=== PATIENT | male | born 1960 | race Hispanic/Latino ===

== ENCOUNTER 2017-11-10 11:07 | Inpatient (IN) | payer OTHER, SELFPAY ==
[~2017-11-10] VITALS: Ht 165.1 cm; Wt 60.8 kg
[2017-11-10] MEDS ORDERED: ONDANSETRON HCL 4 MG/2 ML VIAL ONE ×2 (12:06→12:09)
[2017-11-10] MEDS ORDERED: ACETAMINOPHEN 325 MG TAB ONE (12:06)
[2017-11-10] MEDS ORDERED: MORPHINE SULFATE 4 MG/1ML SYG ONE (12:07)
[2017-11-10 12:30] LABS: BASOPHILS % (AUTO) 0.1 % (0.0-5.0); EOSINOPHILS % (AUTO) 0.5 % (0.0-8.0); LYMPHOCYTES % (AUTO) 9.1 % (21.0-51.0); MEAN CORPUSCULAR HEMOGLOBIN 28.8 pg (27.0-33.0); MEAN CORPUSCULAR HGB CONC 34.7 g/dL (32.0-36.0); MEAN CORPUSCULAR VOLUME 82.9 fL (79-99); MONOCYTES % (AUTO) 4.7 % (3.0-13.0); NEUTROPHILS % (AUTO) 85.6 % (40.0-77.0); PLATELET COUNT (AUTO) 190 K/uL (130-400); RED BLOOD CELL COUNT(AUTO) 4.95 MIL/uL (4.50-6.20); RED CELL DISTRIBUTION WIDTH 13.9 % (11.0-15.5); WHITE BLOOD COUNT (AUTO) 19.1 K/uL (4.8-10.8)
[2017-11-10 12:32] LABS: APPEARANCE,URINE Clear (CLEAR); BILIRUBIN,URINE Negative (NEGATIVE); COLOR,URINE Yellow (YELLOW); GLUCOSE, URINE (UA) Negative (NEGATIVE); KETONES,URINE Negative (NEGATIVE); LEUKOCYTE ESTERASE ,URINE Negative (NEGATIVE); NITRATE,URINE Negative (NEGATIVE); OCCULT BLOOD,URINE Negative (NEGATIVE); PROTEIN,URINE 300 (NEGATIVE)
[2017-11-10 12:37] LABS: POTASSIUM 3.4 mmol/L (3.5-5.1)
[2017-11-10 12:42] LABS: ALBUMIN 3.9 g/dL (3.5-5.0); BILIRUBIN,TOTAL 0.4 mg/dL (0.2-1.0); TOTAL PROTEIN, SERUM 7.5 g/dL (6.0-8.3)
[2017-11-10 12:53] LABS: BACTERIA,URINE Rare /HPF (None Seen); HYALINE CASTS, URINE 0-1 /LPF (0-1 /LPF); MUCUS,URINE Few LPF (None Seen); RBC,URINE None Seen /HPF (0-1); SQUAMOUS EPITHELIAL CELL,UR Rare /HPF (0-2); WBC,URINE None Seen /HPF (0-1)
[2017-11-10] MEDS ORDERED: CEFTRIAXONE SODIUM 1 GM ONE (13:31)
[2017-11-10] MEDS ORDERED: LACTATED RINGERS 1000ML 1,000 ML IV ONE (13:31)
[2017-11-10 16:00] VITALS: BP 123/72
[2017-11-10] MEDS ORDERED: METRONIDAZOLE 500MG/100ML BAG 100 ML ONE (16:38)
[2017-11-10] MEDS ORDERED: ACETAMINOPHEN 650 MG SUPPOSITORY RC PRN (17:30)
[2017-11-10] MEDS ORDERED: PROMETHAZINE HCL 25 MG/ML 1ML AMPULE IM PRN (18:00)
[2017-11-10] MEDS: LACTATED RINGERS 1000ML 1,000 ML IV SCH (18:17)
[2017-11-10 20:35] VITALS: BP 106/62
[2017-11-10] MEDS: METRONIDAZOLE 500MG/100ML BAG 100 ML IVPB SCH (21:31)
[2017-11-10] MEDS: CEFTAZIDIME PENTAHYDRATE 1 GM/VIAL IVP SCH (21:31)
[2017-11-10] MEDS: MEPERIDINE-PF 25 MG/ML SYG IV PRN (22:01)
[2017-11-10 23:36] VITALS: BP 101/56
[2017-11-11] MEDS: LACTATED RINGERS 1000ML 1,000 ML IV SCH ×3 (03:58→17:42)
[2017-11-11] MEDS: CEFTAZIDIME PENTAHYDRATE 1 GM/VIAL IVP SCH ×3 (04:01→19:39)
[2017-11-11] MEDS: METRONIDAZOLE 500MG/100ML BAG 100 ML IVPB SCH ×4 (04:01→21:59)
[2017-11-11] MEDS: MEPERIDINE-PF 25 MG/ML SYG IV PRN ×3 (04:07→19:38)
[2017-11-11 04:15] VITALS: BP 99/54
[2017-11-11 06:17] LABS: BASOPHILS % (AUTO) 0.2 % (0.0-5.0); HEMATOCRIT 37.2 % (42-54); LYMPHOCYTES % (AUTO) 6.5 % (21.0-51.0); MEAN CORPUSCULAR HEMOGLOBIN 28.7 pg (27.0-33.0); MEAN CORPUSCULAR HGB CONC 34.5 g/dL (32.0-36.0); MEAN CORPUSCULAR VOLUME 83.2 fL (79-99); MONOCYTES % (AUTO) 6.6 % (3.0-13.0); NEUTROPHILS % (AUTO) 86.7 % (40.0-77.0); PLATELET COUNT (AUTO) 170 K/uL (130-400); RED BLOOD CELL COUNT(AUTO) 4.48 MIL/uL (4.50-6.20); RED CELL DISTRIBUTION WIDTH 13.7 % (11.0-15.5); WHITE BLOOD COUNT (AUTO) 19.1 K/uL (4.8-10.8)
[2017-11-11 06:39] LABS: CREATININE 0.9 mg/dL (0.5-1.5); POTASSIUM 3.6 mmol/L (3.5-5.1)
[2017-11-11 08:00] VITALS: BP 113/79
[2017-11-11 11:00] VITALS: BP 119/82
[2017-11-11 15:46] VITALS: BP 111/67
[2017-11-11 20:27] VITALS: BP 112/64
[2017-11-11] MEDS ORDERED: LORAZEPAM 0.5 MG TABLET PO ONE (20:30)
[2017-11-12 00:29] VITALS: BP 111/59
[2017-11-12] MEDS: LACTATED RINGERS 1000ML 1,000 ML IV SCH ×4 (02:55→20:01)
[2017-11-12 03:53] VITALS: BP 114/63
[2017-11-12] MEDS: METRONIDAZOLE 500MG/100ML BAG 100 ML IVPB SCH ×4 (04:23→20:00)
[2017-11-12] MEDS: CEFTAZIDIME PENTAHYDRATE 1 GM/VIAL IVP SCH ×3 (04:23→20:00)
[2017-11-12] MEDS: MEPERIDINE-PF 25 MG/ML SYG IV PRN ×3 (04:35→20:07)
[2017-11-12 06:00] LABS: HEMATOCRIT 34.5 % (42-54); MEAN CORPUSCULAR HEMOGLOBIN 29.2 pg (27.0-33.0); MEAN CORPUSCULAR VOLUME 83.5 fL (79-99); PLATELET COUNT (AUTO) 141 K/uL (130-400); RED BLOOD CELL COUNT(AUTO) 4.13 MIL/uL (4.50-6.20); RED CELL DISTRIBUTION WIDTH 13.9 % (11.0-15.5); WHITE BLOOD COUNT (AUTO) 17.3 K/uL (4.8-10.8)
[2017-11-12 06:09] LABS: CREATININE 0.8 mg/dL (0.5-1.5); POTASSIUM 3.5 mmol/L (3.5-5.1)
[2017-11-12 07:00] VITALS: BP 110/61
[2017-11-12 11:11] VITALS: BP 115/66
[2017-11-12 15:36] VITALS: BP 115/64
[2017-11-12 19:52] VITALS: BP 126/72
[2017-11-13] VITALS (7 sets, daily range): BP systolic 108–131; BP diastolic 60–76
[2017-11-13] MEDS: METRONIDAZOLE 500MG/100ML BAG 100 ML IVPB SCH ×4 (04:24→21:53)
[2017-11-13] MEDS: CEFTAZIDIME PENTAHYDRATE 1 GM/VIAL IVP SCH ×3 (04:24→20:20)
[2017-11-13 05:22] LABS: HEMATOCRIT 36.3 % (42-54); MEAN CORPUSCULAR HEMOGLOBIN 28.7 pg (27.0-33.0); MEAN CORPUSCULAR HGB CONC 34.3 g/dL (32.0-36.0); MEAN CORPUSCULAR VOLUME 83.7 fL (79-99); PLATELET COUNT (AUTO) 152 K/uL (130-400); RED BLOOD CELL COUNT(AUTO) 4.33 MIL/uL (4.50-6.20); RED CELL DISTRIBUTION WIDTH 13.7 % (11.0-15.5); WHITE BLOOD COUNT (AUTO) 16.1 K/uL (4.8-10.8)
[2017-11-13 05:32] LABS: CREATININE 0.8 mg/dL (0.5-1.5); POTASSIUM 3.2 mmol/L (3.5-5.1)
[2017-11-13] MEDS ORDERED: DIATR MEGLU/DIATRIZOATE SODIUM 30 ML BOTTLE ONE (07:54)
[2017-11-13] MEDS: LACTATED RINGERS 1000ML 1,000 ML IV SCH ×3 (10:35→23:24)
[2017-11-13] MEDS ORDERED: IOPAMIDOL-370 75 ML VIAL IV ONE (11:46)
[2017-11-13] MEDS: MEPERIDINE-PF 25 MG/ML SYG IV PRN (23:24)
[2017-11-14 03:44] VITALS: BP 110/65
[2017-11-14] MEDS: METRONIDAZOLE 500MG/100ML BAG 100 ML IVPB SCH ×4 (04:02→22:00)
[2017-11-14] MEDS: CEFTAZIDIME PENTAHYDRATE 1 GM/VIAL IVP SCH ×3 (04:02→19:56)
[2017-11-14 07:00] VITALS: BP 108/61
[2017-11-14] MEDS: LACTATED RINGERS 1000ML 1,000 ML IV SCH ×2 (10:00→15:56)
[2017-11-14 12:00] VITALS: BP 124/71
[2017-11-14 15:41] LABS: HEMATOCRIT 35.5 % (42-54); MEAN CORPUSCULAR HEMOGLOBIN 28.6 pg (27.0-33.0); MEAN CORPUSCULAR HGB CONC 34.3 g/dL (32.0-36.0); MEAN CORPUSCULAR VOLUME 83.4 fL (79-99); PLATELET COUNT (AUTO) 202 K/uL (130-400); RED BLOOD CELL COUNT(AUTO) 4.26 MIL/uL (4.50-6.20); RED CELL DISTRIBUTION WIDTH 13.4 % (11.0-15.5); WHITE BLOOD COUNT (AUTO) 10.3 K/uL (4.8-10.8)
[2017-11-14] MEDS: MEPERIDINE-PF 25 MG/ML SYG IV PRN ×2 (15:43→23:56)
[2017-11-14 16:17] VITALS: BP 127/74
[2017-11-14 20:00] VITALS: BP 127/76
[2017-11-14 23:19] VITALS: BP 120/65
[2017-11-15] MEDS: LACTATED RINGERS 1000ML 1,000 ML IV SCH ×3 (01:56→18:59)
[2017-11-15 04:07] VITALS: BP 120/66
[2017-11-15] MEDS: METRONIDAZOLE 500MG/100ML BAG 100 ML IVPB SCH ×4 (04:07→22:38)
[2017-11-15] MEDS: CEFTAZIDIME PENTAHYDRATE 1 GM/VIAL IVP SCH ×3 (04:07→21:52)
[2017-11-15 06:22] LABS: HEMATOCRIT 34.8 % (42-54); MEAN CORPUSCULAR HEMOGLOBIN 29.3 pg (27.0-33.0); MEAN CORPUSCULAR HGB CONC 35.2 g/dL (32.0-36.0); MEAN CORPUSCULAR VOLUME 83.3 fL (79-99); NUCLEATED RED BLOOD CELLS 0.1 % (0.0-0.19); PLATELET COUNT (AUTO) 250 K/uL (130-400); RED BLOOD CELL COUNT(AUTO) 4.18 MIL/uL (4.50-6.20); RED CELL DISTRIBUTION WIDTH 13.8 % (11.0-15.5); WHITE BLOOD COUNT (AUTO) 9.5 K/uL (4.8-10.8)
[2017-11-15 08:00] VITALS: BP 118/66
[2017-11-15 11:58] VITALS: BP 126/70
[2017-11-15 16:38] VITALS: BP 116/66
[2017-11-15 20:18] VITALS: BP 119/65
[2017-11-16 00:26] VITALS: BP 122/62
[2017-11-16] MEDS: MEPERIDINE-PF 25 MG/ML SYG IV PRN (00:48)
[2017-11-16] MEDS: CEFTAZIDIME PENTAHYDRATE 1 GM/VIAL IVP SCH ×3 (04:15→20:54)
[2017-11-16] MEDS: LACTATED RINGERS 1000ML 1,000 ML IV SCH ×4 (04:17→20:53)
[2017-11-16 04:55] VITALS: BP 124/66
[2017-11-16] MEDS: METRONIDAZOLE 500MG/100ML BAG 100 ML IVPB SCH ×4 (05:04→21:58)
[2017-11-16 08:29] VITALS: BP 124/72
[2017-11-16 12:00] VITALS: BP 115/73
[2017-11-16 16:00] VITALS: BP 124/69
[2017-11-16 19:00] VITALS: BP 128/67
[2017-11-17] VITALS: BP 118/72
[2017-11-17 04:00] VITALS: BP 119/65
[2017-11-17] MEDS: CEFTAZIDIME PENTAHYDRATE 1 GM/VIAL IVP SCH ×3 (04:08→20:09)
[2017-11-17] MEDS: METRONIDAZOLE 500MG/100ML BAG 100 ML IVPB SCH ×4 (04:09→21:54)
[2017-11-17 08:00] VITALS: BP 121/62
[2017-11-17 08:59] LABS: HEMATOCRIT 36.6 % (42-54); MEAN CORPUSCULAR HEMOGLOBIN 29.2 pg (27.0-33.0); MEAN CORPUSCULAR HGB CONC 35.2 g/dL (32.0-36.0); PLATELET COUNT (AUTO) 289 K/uL (130-400); RED BLOOD CELL COUNT(AUTO) 4.41 MIL/uL (4.50-6.20); RED CELL DISTRIBUTION WIDTH 13.4 % (11.0-15.5); WHITE BLOOD COUNT (AUTO) 9.4 K/uL (4.8-10.8)
[2017-11-17] MEDS: LACTATED RINGERS 1000ML 1,000 ML IV SCH ×2 (10:00→18:00)
[2017-11-17 12:00] VITALS: BP 122/66
[2017-11-17 16:00] VITALS: BP 131/63
[2017-11-17] MEDS: MEPERIDINE-PF 25 MG/ML SYG IV PRN (17:15)
[2017-11-17 19:00] VITALS: BP 123/64
[2017-11-17] MEDS ORDERED: MEPERIDINE-PF 25 MG/ML SYG ONE (23:36)
[2017-11-18] VITALS: BP 132/68
[2017-11-18] MEDS: LACTATED RINGERS 1000ML 1,000 ML IV SCH ×3 (00:49→20:23)
[2017-11-18 04:00] VITALS: BP 134/66
[2017-11-18] MEDS: METRONIDAZOLE 500MG/100ML BAG 100 ML IVPB SCH ×4 (04:17→21:57)
[2017-11-18] MEDS: CEFTAZIDIME PENTAHYDRATE 1 GM/VIAL IVP SCH ×3 (04:17→20:23)
[2017-11-18 06:43] LABS: HEMATOCRIT 37.3 % (42-54); MEAN CORPUSCULAR HEMOGLOBIN 28.2 pg (27.0-33.0); MEAN CORPUSCULAR HGB CONC 34.3 g/dL (32.0-36.0); MEAN CORPUSCULAR VOLUME 82.3 fL (79-99); PLATELET COUNT (AUTO) 320 K/uL (130-400); RED BLOOD CELL COUNT(AUTO) 4.53 MIL/uL (4.50-6.20); RED CELL DISTRIBUTION WIDTH 13.5 % (11.0-15.5); WHITE BLOOD COUNT (AUTO) 12.5 K/uL (4.8-10.8)
[2017-11-18 08:00] VITALS: BP 125/67
[2017-11-18 11:46] VITALS: BP 122/72
[2017-11-18] MEDS: MEPERIDINE-PF 25 MG/ML SYG IV PRN (15:00)
[2017-11-18 16:00] VITALS: BP 128/66
[2017-11-18 20:00] VITALS: BP 131/68
[2017-11-19] VITALS (27 sets, daily range): BP systolic 117–139; BP diastolic 59–77
[2017-11-19] MEDS: METRONIDAZOLE 500MG/100ML BAG 100 ML IVPB SCH ×4 (02:40→20:45)
[2017-11-19] MEDS: LACTATED RINGERS 1000ML 1,000 ML IV SCH ×3 (03:53→20:43)
[2017-11-19] MEDS: CEFTAZIDIME PENTAHYDRATE 1 GM/VIAL IVP SCH ×4 (03:53→20:42)
[2017-11-19 04:31] LABS: HEMATOCRIT 36.9 % (42-54); MEAN CORPUSCULAR HGB CONC 35.1 g/dL (32.0-36.0); MEAN CORPUSCULAR VOLUME 82.4 fL (79-99); PLATELET COUNT (AUTO) 349 K/uL (130-400); RED BLOOD CELL COUNT(AUTO) 4.48 MIL/uL (4.50-6.20); RED CELL DISTRIBUTION WIDTH 13.5 % (11.0-15.5); WHITE BLOOD COUNT (AUTO) 8.1 K/uL (4.8-10.8)
[2017-11-19 04:38] LABS: CREATININE 0.7 mg/dL (0.5-1.5); POTASSIUM 3.1 mmol/L (3.5-5.1)
[2017-11-19 04:41] LABS: INR 1.11 (0.85-1.15); PARTIAL THROMBOPLASTIN TIME 28.7 SEC (26.3-35.5); PROTHROMBIN TIME 11.6 SEC (9.6-11.6)
[2017-11-19] MEDS ORDERED: LIDOCAINE HCL-MPF 1% 2ML VIAL ONE ×2 (07:39→10:45)
[2017-11-19] MEDS: POTASSIUM CHLORIDE 20MEQ/100ML 100 ML IV SCH ×2 (07:57→10:48)
[2017-11-19] MEDS ORDERED: ROCURONIUM BROMIDE 10MG/1ML 5ML VL ONE (16:27)
[2017-11-19] MEDS ORDERED: LIDOCAINE PF 2% 5ML ABBOJECT ONE (16:27)
[2017-11-19] MEDS ORDERED: SUCCINYLCHOLINE CHLORIDE 20 MG/ML 10 ML VIAL ONE (16:27)
[2017-11-19] MEDS ORDERED: FENTANYL CITRATE PF 50 MCG/1 ML 2ML VIAL ONE ×2 (16:28→17:51)
[2017-11-19] MEDS ORDERED: PROPOFOL 10 MG/ML 20ML VIAL IV ONE ×2 (16:28→18:28)
[2017-11-19] MEDS ORDERED: MIDAZOLAM HCL 1 MG/ML 2ML VIAL ONE (16:28)
[2017-11-19] MEDS ORDERED: EPHEDRINE SULFATE 50 MG/ML AMPULE ONE (17:57)
[2017-11-19] MEDS ORDERED: FENTANYL CITRATE PF 50 MCG/1 ML 5ML AMP IV ONE (18:27)
[2017-11-19] MEDS ORDERED: EPHEDRINE SULFATE 50 MG/ML AMPULE IVP PRN (20:30)
[2017-11-19] MEDS ORDERED: DiphenhydrAMINE HCL 50 MG/ML VIAL IVP PRN (20:30)
[2017-11-19] MEDS ORDERED: ONDANSETRON HCL 4 MG/2 ML 8 MG in SODIUM CHLORIDE 0.9% 50 ML IVP NR (20:30)
[2017-11-19] MEDS ORDERED: MORPHINE SULFATE 2 MG/ML 1ML SYG IVP PRN (20:30)
[2017-11-19] MEDS ORDERED: ONDANSETRON HCL 4 MG/2 ML VIAL IVP PRN ×2 (20:30)
[2017-11-19] MEDS ORDERED: NALOXONE HCL 0.4 MG/1 ML ML IVP PRN ×2 (20:30)
[2017-11-19] MEDS ORDERED: PROMETHAZINE HCL 25 MG/ML 1ML AMPULE IM PRN (20:30)
[2017-11-19] MEDS ORDERED: HYDROCODONE/ACETAMINOPHEN 5/325 MG TAB PO PRN ×2 (20:30)
[2017-11-19] MEDS ORDERED: ROPIVACAINE 0.2%200ML EPIDURAL 200 ML EP SCH (21:00)
[2017-11-19] MEDS ORDERED: TRAMADOL HCL 50 MG TABLET PO PRN ×2 (21:45)
[2017-11-19] MEDS ORDERED: ACETAMINOPHEN 325 MG TAB PO PRN (21:45)
[2017-11-19] MEDS: MORPHINE SULFATE 4 MG/1ML SYG IVP PRN (22:49)
[2017-11-20] MEDS: MORPHINE SULFATE 4 MG/1ML SYG IVP PRN ×3 (00:09→09:05)
[2017-11-20] MEDS: CEFTAZIDIME PENTAHYDRATE 1 GM/VIAL IVP SCH ×3 (03:35→20:25)
[2017-11-20] MEDS: METRONIDAZOLE 500MG/100ML BAG 100 ML IVPB SCH ×4 (03:35→23:19)
[2017-11-20 04:00] VITALS: BP 124/77
[2017-11-20 05:41] LABS: HEMATOCRIT 37.7 % (42-54); MEAN CORPUSCULAR HEMOGLOBIN 28.2 pg (27.0-33.0); MEAN CORPUSCULAR HGB CONC 33.6 g/dL (32.0-36.0); MEAN CORPUSCULAR VOLUME 83.7 fL (79-99); PLATELET COUNT (AUTO) 368 K/uL (130-400); RED BLOOD CELL COUNT(AUTO) 4.51 MIL/uL (4.50-6.20); RED CELL DISTRIBUTION WIDTH 13.9 % (11.0-15.5); WHITE BLOOD COUNT (AUTO) 20.5 K/uL (4.8-10.8)
[2017-11-20 06:08] LABS: CREATININE 0.8 mg/dL (0.5-1.5); POTASSIUM 4.3 mmol/L (3.5-5.1)
[2017-11-20 07:52] VITALS: BP 127/66
[2017-11-20] MEDS: LACTATED RINGERS 1000ML 1,000 ML IV SCH ×2 (10:00→12:54)
[2017-11-20 11:00] VITALS: BP 121/71
[2017-11-20 16:00] VITALS: BP 131/76
[2017-11-20 20:00] VITALS: BP 127/62
[2017-11-20] MEDS: MEPERIDINE-PF 25 MG/ML SYG IV PRN (20:26)
[2017-11-20] MEDS: METOCLOPRAMIDE 10 MG/2 ML VIAL IVP PRN (23:25)
[2017-11-21] VITALS: BP 130/70
[2017-11-21] MEDS: LACTATED RINGERS 1000ML 1,000 ML IV SCH ×3 (02:32→20:56)
[2017-11-21] MEDS: MEPERIDINE-PF 25 MG/ML SYG IV PRN ×4 (02:34→23:07)
[2017-11-21 04:00] VITALS: BP 120/70
[2017-11-21 05:30] LABS: HEMATOCRIT 35.6 % (42-54); MEAN CORPUSCULAR HEMOGLOBIN 28.9 pg (27.0-33.0); MEAN CORPUSCULAR HGB CONC 35.1 g/dL (32.0-36.0); MEAN CORPUSCULAR VOLUME 82.5 fL (79-99); PLATELET COUNT (AUTO) 346 K/uL (130-400); RED BLOOD CELL COUNT(AUTO) 4.31 MIL/uL (4.50-6.20); RED CELL DISTRIBUTION WIDTH 13.8 % (11.0-15.5); WHITE BLOOD COUNT (AUTO) 11.7 K/uL (4.8-10.8)
[2017-11-21 05:39] LABS: CREATININE 0.6 mg/dL (0.5-1.5); POTASSIUM 3.2 mmol/L (3.5-5.1)
[2017-11-21] MEDS: METRONIDAZOLE 500MG/100ML BAG 100 ML IVPB SCH ×4 (05:55→23:07)
[2017-11-21] MEDS: CEFTAZIDIME PENTAHYDRATE 1 GM/VIAL IVP SCH ×3 (05:55→20:55)
[2017-11-21 08:30] VITALS: BP 124/70
[2017-11-21] MEDS: METOCLOPRAMIDE 10 MG/2 ML VIAL IVP PRN ×2 (08:35→20:55)
[2017-11-21 12:00] VITALS: BP 119/67
[2017-11-21 16:00] VITALS: BP 133/79
[2017-11-21 20:00] VITALS: BP 130/77
[2017-11-22] VITALS (7 sets, daily range): BP systolic 120–139; BP diastolic 67–83
[2017-11-22] MEDS: METRONIDAZOLE 500MG/100ML BAG 100 ML IVPB SCH ×4 (05:29→22:15)
[2017-11-22] MEDS: CEFTAZIDIME PENTAHYDRATE 1 GM/VIAL IVP SCH ×3 (05:29→20:00)
[2017-11-22] MEDS: LACTATED RINGERS 1000ML 1,000 ML IV SCH ×4 (05:30→22:17)
[2017-11-22 09:30] LABS: CREATININE 0.7 mg/dL (0.5-1.5); POTASSIUM 3.1 mmol/L (3.5-5.1)
[2017-11-22] MEDS: METOCLOPRAMIDE 10 MG/2 ML VIAL IVP PRN (09:51)
[2017-11-22] MEDS: POTASSIUM CHLORIDE 20 MEQ ERTAB PO SCH ×2 (14:33→17:47)
[2017-11-22] MEDS ORDERED: CALCIUM CARBON 500MG CHEW TAB PO PRN (15:00)
[2017-11-22] MEDS: MEPERIDINE-PF 25 MG/ML SYG IV PRN (22:15)
[2017-11-23 03:10] VITALS: BP 132/74
[2017-11-23] MEDS: CEFTAZIDIME PENTAHYDRATE 1 GM/VIAL IVP SCH (03:55)
[2017-11-23] MEDS: METRONIDAZOLE 500MG/100ML BAG 100 ML IVPB SCH (03:55)
[2017-11-23] MEDS ORDERED: PANTOPRAZOLE SODIUM 40 MG TABLET.DR PO SCH (07:30)
[2017-11-23 08:00] VITALS: BP 136/72
[2017-11-23] MEDS: METOCLOPRAMIDE 10 MG/2 ML VIAL IVP PRN (08:11)
[2017-11-23 09:08] LABS: CREATININE 0.7 mg/dL (0.5-1.5); POTASSIUM 3.5 mmol/L (3.5-5.1)
== END 2017-11-23 12:50 | disposition home or self-care (01) | DRG 330 ==
LOC: EDH 11:07 → EDHIP 11:08 → 3AH 16:38
PROVIDERS: ADMIT Surgery; ATTEND Surgery
PROC: 0DBN0ZZ Excision of Sigmoid Colon, Open Approach (ICD-10-PCS; principal; 2017-11-19 17:07)
DX: K63.9 Disease of intestine, unspecified (principal); K57.32 Diverticulitis of large intestine without perforation or abscess without bleeding
CPT/HCPCS: 36415; 74176; 74177; 80048; 80053; 81001; 83690; 85025; 85027; 85610; 85730; 87040; 88305; 88307; A4218; A4344; J0330; J0696; J0713; J2001; J2175; J2250; J2270; J2405; J2704; J2765; J2795; J3010; J3480; J3490; J7030; J7120; Q9963; Q9967

== ENCOUNTER 2019-01-21 20:07 | Inpatient (IN) | payer SELFPAY ==
[~2019-01-21] VITALS: Ht 170.2 cm; Wt 63.7 kg
[2019-01-21 20:48] LABS: BASOPHILS % (AUTO) 0.4 % (0.0-5.0); EOSINOPHILS % (AUTO) 1.5 % (0.0-8.0); HEMATOCRIT 42.4 % (42-54); LYMPHOCYTES % (AUTO) 26.2 % (21.0-51.0); MEAN CORPUSCULAR HGB CONC 33.8 g/dL (32.0-36.0); MEAN CORPUSCULAR VOLUME 82.9 fL (79-99); MONOCYTES % (AUTO) 5.6 % (3.0-13.0); NEUTROPHILS % (AUTO) 66.3 % (40.0-77.0); PLATELET COUNT (AUTO) 201 K/uL (130-400); RED BLOOD CELL COUNT(AUTO) 5.11 MIL/uL (4.50-6.20); RED CELL DISTRIBUTION WIDTH 14.2 % (11.0-15.5); WHITE BLOOD COUNT (AUTO) 8.8 K/uL (4.8-10.8)
[2019-01-21 20:49] LABS: APPEARANCE,URINE Clear (CLEAR); BILIRUBIN,URINE Negative (NEGATIVE); COLOR,URINE Yellow (YELLOW); GLUCOSE, URINE (UA) Negative (NEGATIVE); KETONES,URINE Negative (NEGATIVE); LEUKOCYTE ESTERASE ,URINE Negative (NEGATIVE); NITRATE,URINE Negative (NEGATIVE); OCCULT BLOOD,URINE Trace (NEGATIVE); PROTEIN,URINE 300 mg/dL (NEGATIVE)
[2019-01-21] MEDS ORDERED: MORPHINE SULFATE 2 MG/ML 1ML SYG ONE (20:51)
[2019-01-21] MEDS ORDERED: SODIUM CHLORIDE 0.9% 1000ML 1,000 ML IV ONE (20:51)
[2019-01-21] MEDS ORDERED: ONDANSETRON HCL 4 MG/2 ML VIAL ONE (20:51)
[2019-01-21 21:04] LABS: BACTERIA,URINE Few /HPF (None Seen); SQUAMOUS EPITHELIAL CELL,UR 0-2 /HPF (0-2)
[2019-01-21 21:23] LABS: CREATININE 1.2 mg/dL (0.5-1.5); POTASSIUM 3.6 mmol/L (3.5-5.1)
[2019-01-21 21:28] LABS: ALBUMIN 4.3 g/dL (3.5-5.0); BILIRUBIN,TOTAL 0.5 mg/dL (0.2-1.0); TOTAL PROTEIN, SERUM 8.4 g/dL (6.0-8.3)
[2019-01-21] MEDS ORDERED: IOHEXOL-350 75 ML VIAL IV ONE (21:38)
[2019-01-21] MEDS ORDERED: LEVOFLOXACIN 500 MG/D5W 100 ML 100 ML ONE (23:10)
[2019-01-21] MEDS ORDERED: METRONIDAZOLE 500MG/100ML BAG 100 ML ONE (23:10)
[2019-01-21] MEDS ORDERED: MORPHINE SULFATE 2 MG/ML 1ML SYG IV PRN (23:45)
[2019-01-21] MEDS ORDERED: ACETAMINOPHEN 325 MG TAB PO PRN (23:45)
[2019-01-21] MEDS ORDERED: LACTULOSE 20 GM/30 ML UDCUP PO PRN (23:45)
[2019-01-21] MEDS ORDERED: ONDANSETRON HCL 4 MG/2 ML VIAL IV PRN (23:45)
[2019-01-22] VITALS (7 sets, daily range): BP systolic 113–134; BP diastolic 66–75
[2019-01-22] MEDS ORDERED: PHARMACY COMMUNICATION MISC SCH
[2019-01-22] MEDS ORDERED: SODIUM CHLORIDE 0.9% 1000ML 1,000 ML IV ONE (01:18)
[2019-01-22] MEDS: SODIUM CHLORIDE 0.9% 1000ML 1,000 ML IV SCH ×2 (01:23→12:40)
[2019-01-22] MEDS: METRONIDAZOLE 500MG/100ML BAG 100 ML IV SCH ×3 (05:23→23:19)
[2019-01-22] MEDS: FAMOTIDINE/PF 20 MG/2 ML VIAL IV SCH ×2 (07:58→23:19)
[2019-01-22] MEDS: ENOXAPARIN SODIUM 40 MG/0.4 ML SYRINGE SQ SCH (07:59)
--- NOTE | 2019-01-22 13:16 | NUR ---
DCP CM met with pt discussed dc plans. Pt is independent prior to admission, lives at home with spouse. Denies any equipments/services. Pt feels safe to go back home, spouse able to assist with transportation and needs. DC plan to home once stable. CM to cont to follow up. Addendum: 01/22/19 at 1317 by LYN MENJIVAR LVN CM Amended: Links added.
[2019-01-22] MEDS ORDERED: LEVOFLOXACIN 500 MG/D5W 100 ML 100 ML IV SCH (22:00)
[2019-01-23 04:02] VITALS: BP 108/64
[2019-01-23 04:49] LABS: HEMATOCRIT 38.4 % (42-54); MEAN CORPUSCULAR HEMOGLOBIN 28.4 pg (27.0-33.0); MEAN CORPUSCULAR VOLUME 83.5 fL (79-99); PLATELET COUNT (AUTO) 190 K/uL (130-400); RED CELL DISTRIBUTION WIDTH 14.2 % (11.0-15.5); WHITE BLOOD COUNT (AUTO) 5.1 K/uL (4.8-10.8)
[2019-01-23 04:53] LABS: POTASSIUM 3.8 mmol/L (3.5-5.1)
[2019-01-23] MEDS: SODIUM CHLORIDE 0.9% 1000ML 1,000 ML IV SCH (05:35)
[2019-01-23 07:34] VITALS: BP 134/67
[2019-01-23] MEDS: METRONIDAZOLE 500MG/100ML BAG 100 ML IV SCH (08:41)
[2019-01-23] MEDS: ENOXAPARIN SODIUM 40 MG/0.4 ML SYRINGE SQ SCH (09:10)
[2019-01-23] MEDS: FAMOTIDINE/PF 20 MG/2 ML VIAL IV SCH (09:10)
[2019-01-23] MEDS ORDERED: PANT40TA25 PO (10:04)
[2019-01-23] MEDS ORDERED: METR-172 PO (10:04)
[2019-01-23] MEDS ORDERED: LEVO500T89 PO (10:04)
== END 2019-01-23 12:43 | disposition home or self-care (01) | DRG 389 ==
LOC: EDH 20:07 → OBSVTOIN 20:08 → EDHIP 20:08 → 3DH 01-22 00:50
PROVIDERS: ADMIT Internal Medicine; ATTEND Internal Medicine
DX: K56.609 Unspecified intestinal obstruction, unspecified as to partial versus complete obstruction (principal); K57.92 Diverticulitis of intestine, part unspecified, without perforation or abscess without bleeding; Z82.49 Family history of ischemic heart disease and other diseases of the circulatory system
CPT/HCPCS: 36415; 74177; 80048; 80053; 81001; 83690; 85025; 85027; G0378; J1650; J1956; J2405; J3490; J7030; Q9967

== ENCOUNTER 2023-01-07 15:02 | Emergency (ER) | payer OTHER ==
[~2023-01-07] VITALS: Ht 165.1 cm; Wt 63.5 kg
[~2023-01-07 15:02] MED LIST: LEVO-70 PO; METR-172 PO; PANT40TA55 PO
[2023-01-07 16:05] LABS: BASOPHILS % (AUTO) 0.5 % (0.0-5.0); EOSINOPHILS % (AUTO) 1.8 % (0.0-8.0); HEMATOCRIT 44.2 % (42-54); LYMPHOCYTES % (AUTO) 49.9 % (21.0-51.0); MEAN CORPUSCULAR HEMOGLOBIN 27.5 pg (27.0-33.0); MEAN CORPUSCULAR HGB CONC 33.3 g/dL (32.0-36.0); MEAN CORPUSCULAR VOLUME 82.6 fL (79-99); MONOCYTES % (AUTO) 6.8 % (3.0-13.0); NEUTROPHILS % (AUTO) 40.9 % (40.0-77.0); PLATELET COUNT (AUTO) 197 K/uL (130-400); RED BLOOD CELL COUNT(AUTO) 5.35 MIL/uL (4.50-6.20); RED CELL DISTRIBUTION WIDTH 13.5 % (11.0-15.5); WHITE BLOOD COUNT (AUTO) 7.6 K/uL (4.8-10.8)
[2023-01-07 16:18] LABS: CREATININE 1.1 mg/dL (0.5-1.5); POTASSIUM 3.2 mmol/L (3.5-5.1)
[2023-01-07 16:25] LABS: TOTAL PROTEIN, SERUM 8.1 g/dL (6.0-8.3)
[2023-01-07] MEDS ORDERED: METOCLOPRAMIDE 10 MG/2 ML VIAL IVP ONE (17:00)
[2023-01-07] MEDS ORDERED: MORPHINE 4 MG SYG IVP ONE (17:00)
[2023-01-07] MEDS ORDERED: LACTATED RINGERS 1000ML 1,000 ML IV ONE (17:00)
[2023-01-07] MEDS ORDERED: IOHEXOL-350 75 ML VIAL IV ONE (17:14)
[2023-01-07] MEDS ORDERED: POTASSIUM BICARB/CIT AC 25 MEQ TABLET.EFF PO ONE (18:00)
[2023-01-07] MEDS ORDERED: POLY17PO4 PO (18:01)
[2023-01-07 19:01] VITALS: BP 122/78; PULSE 78; RESP 18; O2SAT 98
== END 2023-01-07 19:15 | disposition home or self-care (01) ==
LOC: EDH 15:02
DX: K40.90 Unilateral inguinal hernia, without obstruction or gangrene, not specified as recurrent (principal); K59.00 Constipation, unspecified; E87.6 Hypokalemia
CPT/HCPCS: 99285; 74178; 96374; 96361; 96375; 80053; 83690; 85025; 83605; 36415; J7120; J2270; J2765; Q9967

== ENCOUNTER 2025-05-31 21:35 | Emergency (ER) | payer BC, MEDICARE ==
[~2025-05-31] VITALS: Ht 165.1 cm; Wt 67.1 kg
[2025-05-31 22:04] LABS: IMMATURE GRANULOCYTE ABSOLUTE 0.05 K/uL (0-1); NUCLEATED RED BLOOD CELLS 0.0 % (0.0-0.19); PLATELET COUNT (AUTO) 367 K/uL (130-400); RED BLOOD CELL COUNT(AUTO) 4.34 MIL/uL (4.50-6.20); RED CELL DISTRIBUTION WIDTH 13.8 % (11.0-15.5); WHITE BLOOD COUNT (AUTO) 10.6 K/uL (4.8-10.8)
[2025-05-31 22:08] VITALS: BP 128/70; PULSE 79; RESP 18; TEMP 98.8; O2SAT 98
[2025-05-31 22:11] LABS: CREATININE 1.0 mg/dL (0.5-1.3); GLOMERULAR FILTR. RATE CALC 84.0 mL/min (>90); GLUCOSE,RANDOM 116.0 mg/dL (70-105); SODIUM SERUM 135.0 mmol/L (136-145); UREA NITROGEN, BLOOD 10.0 mg/dL (7-18)
[2025-05-31 22:17] LABS: ASPARTATE AMINOTRANSFERASE 35.0 U/L (10-37); TOTAL PROTEIN, SERUM 7.7 g/dL (6.0-8.3)
[2025-05-31 22:21] LABS: CREATINE KINASE, TOTAL 29.0 U/L (21-232)
--- NOTE | 2025-05-31 22:22 | EKG ---
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
[2025-05-31 22:37] LABS: APPEARANCE,URINE CLEAR (CLEAR); GLUCOSE, URINE (UA) NEGATIVE (NEGATIVE); LEUKOCYTE ESTERASE ,URINE NEGATIVE Leu/uL (NEGATIVE); NITRATE,URINE NEGATIVE (NEGATIVE); OCCULT BLOOD,URINE NEGATIVE (NEGATIVE)
[2025-05-31 22:58] LABS: ADD UA MICROSCOPIC YES
--- NOTE | 2025-05-31 23:25 | NUR ---
PT REFUSED TO HAVE THE ABD SOSA, PROMPTING TO GO HOME, AMA FORM SECURED
--- NOTE | 2025-05-31 23:39 | ERN ---
ED Note History of Present Illness Stated Complaint: ABD PAIN AND NAUSEA Chief Complaint: Abdominal Pain Time Seen by MD: 21:36 Time Seen by Midlevel: 21:36 Allergies: Coded Allergies: No Known Drug Allergies (Unverified Allergy, Unknown, 11/10/17) Home Meds No Active Prescriptions or Reported Meds Past Medical History Dictation The patient is a 65-year-old male presenting to the emergency department for evaluation of midepigastric abdominal pain that started2 hours prior to arrival. Patient states that when the pain came on it was a 10/10. However, on arrival he reports the pain significantly improving. He specifically denies any fever, chills, dysuria, hematuria, or any other symptoms at this time. Past Medical History: Diverticulitis, High Cholesterol, Other Additional Past Medical Hx: HEMORRHOIDS, HYPONATREMIA Surgical History: Other Surgical History Other: HEMORRHOID, HERNIA Family History: Negative Review of System Dictation CONSTITUTIONAL: Negative except for HPI HEAD/FACE: Negative except for HPI EENT: Negative except for HPI RESPIRATORY: Negative except for HPI GASTROINTESTINAL/ABDOMINAL: Negative except for HPI GENITOURINARY: Negative except for HPI MUSCULOSKELETAL: Negative except for HPI INTEGUMENTARY: Negative except for HPI NEUROLOGICAL/PSYCH: Negative except for HPI HEMATOLOGIC/LYMPHATIC: Negative except for HPI All Systems Negative, Except as noted above. 13 point review of systems assessed and all negative except for above. Initial Vital Sign VS Vital Signs Date Time Temp Pulse Resp B/P (MAP) Pulse Ox O2 Delivery O2 Flow Rate FiO2 05/31/25 21:36 97.5 83 18 143/76 97 Room Air 05/31/25 22:08 0 21 Physical Exam Dictation Vital Signs reviewed General Appearance: Alert, oriented x 3, no acute distress, well developed, nourished. Head and Face: non-traumatic. Eyes: PERRL, pink conjunctivas, eyelid no trauma, anterior chamber with arcus senilis. Ears: Pinnas intact and no signs of trauma or erythema ear canals clear and no discharge TM no erythema Nose: No discharge, no bleeding. Oropharynx: Mouth normal, tongue pink, pharynx clear,no erythema, tonsils no exudates, no abscesses noted, mucous membrane moist Neck: Supple, non-tender, no thyromegaly, no masses, no JVD, no bruits Breast:Deferred Chest:No tenderness, no crepitus, no paradoxical movement, no retractions Lungs:Clear, well-ventilated, symmetric, no rales, no wheezing, no rhonchi, no stridor, good breath sounds bilaterally Heart: Regular rate, regular rhythm, no murmur, no gallops Vascular: no peripheral edema, Abdomen: Soft, positive bowel sounds, nondistended, no guarding, nontender, no rebound, no masses no hepatomegaly, no splenomegaly, no Ace's sign, no hernias. Rectal: Deferred Genital: Deferred Neurological: Normal speech, motor function intact, sensory function intact Musculoskeletal: Neck nontender, full range of motion, back nontender, full ra nge of motion, Extremities: nontender, full range of motion Skin: Color pink, dry, no turgor, no rash, no lacerations, no abrasions, no contusions. Lymphatic: Deferred Results (Laboratory/Radiology) Laboratory/Radiology Laboratory Tests Test 05/31/25 21:56 05/31/25 22:29 White Blood Count 10.6 K/uL (4.8-10.8) Red Blood Count 4.34 MIL/uL (4.50-6.20) L Hemoglobin 11.9 g/dL (14.0-18.0) L Hematocrit 35.8 % (42-54) L Mean Corpuscular Volume 82.5 fL (79-99) Mean Corpuscular Hemoglobin 27.4 pg (27.0-33.0) Mean Corpuscular Hemoglobin Concent 33.2 g/dL (32.0-36.0) Red Cell Distribution Width 13.8 % (11.0-15.5) Platelet Count 367 K/uL (130-400) Mean Platelet Volume 8.8 fL (7.5-10.5) Immature Granulocyte % (Auto) 0.5 % (0-1) Neutrophils (%) (Auto) 73.5 % (40.0-77.0) Lymphocytes (%) (Auto) 18.1 % (21.0-51.0) L Monocytes (%) (Auto) 6.5 % (3.0-13.0) Eosinophils (%) (Auto) 0.9 % (0.0-8.0) Basophils (%) (Auto) 0.5 % (0.0-5.0) Neutrophils # (Auto) 7.8 K/uL (1.8-7.7) H Lymphocytes # (Auto) 1.9 K/uL (1.0-4.8) Monocytes # (Auto) 0.7 K/uL (0.1-1.0) Eosinophils # (Auto) 0.10 K/uL (0.00-0.70) Basophils # (Auto) 0.05 K/uL (0.00-0.20) Absolute Immature Granulocyte (auto 0.05 K/uL (0-1) Nucleated Red Blood Cells 0.0 % (0.0-0.19) Sodium Level 135 mmol/L (136-145) L Potassium Level 3.8 mmol/L (3.5-5.1) Chloride Level 100 mmol/L (101-111) L Carbon Dioxide Level 26 mmol/L (21-32) Blood Urea Nitrogen 10 mg/dL (7-18) Creatinine 1.0 mg/dL (0.5-1.3) Glomerular Filtration Rate Calc 84 mL/min (>90) Random Glucose 116 mg/dL (70-105) H Total Calcium 9.0 mg/dL (8.5-10.1) Total Bilirubin 0.4 mg/dL (0.2-1.0) Direct Bilirubin 0.1 mg/dL (0.0-0.3) Aspartate Amino Transf (AST/SGOT) 35 U/L (10-37) Alanine Aminotransferase (ALT/SGPT) 69 U/L (12-78) Alkaline Phosphatase 76 U/L (50-136) Total Creatine Kinase 29 U/L (21-232) # Troponin I High Sensitivity 6.1 ng/L (4-75) Total Protein 7.7 g/dL (6.0-8.3) Albumin 3.1 g/dL (3.5-5.0) L Triglycerides Level 308 mg/dL (30-200) H Lipase 244 U/L (16-77) H Urine Color LIGHT-YELLOW (YELLOW) Urine Appearance CLEAR (CLEAR) Urine pH 6.5 (5.0-8.0) Urine Specific Coleman 1.019 (1.001-1.031) Urine Protein 100 mg/dL (NEGATIVE) H Urine Glucose (UA) NEGATIVE mg/dL (NEGATIVE) Urine Ketones NEGATIVE mg/dL (NEGATIVE) Urine Occult Blood NEGATIVE (NEGATIVE) Urine Nitrate NEGATIVE (NEGATIVE) Urine Bilirubin NEGATIVE mg/dL (NEGATIVE) Urine Urobilinogen 0.2 mg/dL (0.2-1.0) Urine Leukocyte Esterase NEGATIVE Ashleigh/uL Urine RBC 0-1 /HPF (0-1) Urine WBC 2-5 /HPF (0-1) H Urine Bacteria None /HPF (None Seen) Labs Reviewed?: Yes ED Course ED Course Orders Procedure Category Date Status Time Vital Signs Per CPOE 05/31/25 Transmitted Routine 21:45 Saline Lock Iv CPOE 05/31/25 Transmitted 21:45 Cbc With Differential LAB 05/31/25 Complete 21:45 Lipase LAB 05/31/25 Complete 21:45 Urinalysis Profile LAB 05/31/25 Complete 21:45 12 Lead Ekg Tracing- EKG 05/31/25 Complete Technical 21:45 Basic Metabolic Panel LAB 05/31/25 Complete 21:45 Cardiac Panel LAB 05/31/25 Complete 21:46 Hepatic Function Panel LAB 05/31/25 Complete 21:56 Triglycerides LAB 05/31/25 Complete 22:55 Vital Signs Date Time Temp Pulse Resp B/P (MAP) Pulse Ox O2 Delivery O2 Flow Rate FiO2 05/31/25 22:08 98.8 79 18 128/70 98 Room Air* 0 21 05/31/25 21:36 97.5 83 18 143/76 97 Room Air Medical Decision Making MDM MDM: The patient is a 65-year-old male presenting to the emergency department for evaluation of midepigastric abdominal pain that started2 hours prior to arrival. Patient states that when the pain came on it was a 10/10. However, on arrival he reports the pain significantly improving. He specifically denies any fever, chills, dysuria, hematuria, or any other symptoms at this time. Physical examination the patient is in no acute distress. Initial vital signs are stable. Abdominal examination is unremarkable. There was no tenderness, rebound, or guarding. However, given his history an abdominal workup was initiated. Your x-ray CBC shows no leukocytosis. Hemoglobin is stable at 11.9. Platelets are normal. Chemistries are stable. Lipase level was slightly elevated at 244. Lipase level is3 times the upper limit. My plan was to obtain an ultrasound to confirm acute pancreatitis however the patient decided to sign out against medical advice. Differential diagnosis: Pancreatitis, gastritis, GERD Rationale: Tests considered and ordered secondary to shared decision making include: Previous outside records reviewed: Old ER visits. Risk of complication and/or morbidity or mortality of patient management: None Medications-Per medication reconciliation Need for hospitalization: Patient does meet criteria for hospitalization. Need for emergency major/minor surgery: No There are no social concerns with this patient. Prescription drug management Prescriptions will include symptomatic care Patient's prior external medical records from other ER visits were reviewed by me as indicated. Prior testing and results from previous visits were reviewed. Prior tests were taken into account with medical decision making and resource utilization, independent historian/historians were used to obtain complete med ical history. I independently interpreted the test that were performed, results were reviewed by me and considered findings on radiology if ordered. Medical management and examination interpretation discussions were had by me with other qualified healthcare professionals as indicated for the patient's care. DX & DISP Disposition: AMA Departure Impression: Primary Impression: Pancreatitis Additional Impression: Left against medical advice Condition: Stable Scripts No Active Prescriptions or Reported Meds Referrals: SELF,REFERRAL (PCP) I have reviewed the case, and I agree with, Diagnosis and Plan I performed the substantive portion of the visit. I have reviewed and personally made and approve the management plan that is documented in the note by myself or the ZEKE. I acknowledge for responsibility for the patient's management plan. DENNIS AKINS PAC May 31, 2025 23:39
== END 2025-05-31 23:27 | disposition left against medical advice (07) ==
LOC: EDH 21:35
DX: K85.90 Acute pancreatitis without necrosis or infection, unspecified (principal); E78.00 Pure hypercholesterolemia, unspecified; Z53.29 Procedure and treatment not carried out because of patient's decision for other reasons
CPT/HCPCS: 36415; 80048; 80076; 81001; 82550; 83690; 84478; 84484; 85025; 93005; 99284